=== PATIENT | male | born 1970 | race Caucasian/White ===

== ENCOUNTER 2017-09-12 08:19 | Observation (INO) | payer OTHER ==
[~2017-09-12] VITALS: Ht 182.9 cm; Wt 107.5 kg
[2017-09-12] VITALS (10 sets, daily range): BP systolic 137–146; BP diastolic 78–92; PULSE 66–86; RESP 13–18; TEMP 98–98.7; O2SAT 94–98
[~2017-09-12 08:19] MED LIST: BENZ1CAP51 PO; LIDOCAINE 1%/EPINEPHrine 1:100,000 SOLN 30 ML VIAL ONE; OXYMETAZOLINE HCL 0.05% 15 ML NASAL SPRAY ONE; VENL75TA PO
[2017-09-12] MEDS ORDERED: METOPROLOL TARTRATE 25 MG TAB PO PRN (08:45)
[2017-09-12] MEDS ORDERED: CHLORHEXIDINE GLUCONATE 2 % 1 PACK (2 CLOTHS) TOPICAL PRN (08:45)
[2017-09-12] MEDS ORDERED: POVIDONE IODINE 5% (ANTISEPSIS KIT) 4 APPLICATIONS EACH NARE PRN (08:45)
[2017-09-12] MEDS ORDERED: SODIUM CHLORID 0.9% 500 ML IV PRN (08:45)
[2017-09-12] MEDS ORDERED: INSULIN HUMAN REGULAR 1,000 UNITS/10 ML VIAL SQ PRN (08:45)
[2017-09-12] MEDS ORDERED: AMPICILLIN/SULBAC 3 GM/NS 100 ML IV SCH ×2 (09:00)
[2017-09-12] MEDS ORDERED: [UNRECOGNIZED DRUG - OTHER] PO (09:26)
[2017-09-12] MEDS ORDERED: FAMOTIDINE 20 MG/2 ML VIAL ONE (09:37)
[2017-09-12] MEDS ORDERED: MIDAZOLAM HCL 2 MG/2 ML VIAL ONE (09:37)
[2017-09-12] MEDS: LACTATED RINGER'S 1000 ML IV PRN ×2 (09:40→17:03)
[2017-09-12] MEDS ORDERED: fentaNYL CITRATE 250 MCG/5 ML AMP ONE (10:24)
[2017-09-12] MEDS ORDERED: MEPERIDINE HCL 25 MG/ML VIAL ONE (11:27)
[2017-09-12] MEDS ORDERED: MORPHINE SULFATE 8 MG/ML INJ ONE (11:38)
[2017-09-12] MEDS ORDERED: *HYDROmorphone PF 1 MG VIAL PERIprocedural Use ONLY ONE (12:05)
[2017-09-12] MEDS ORDERED: LABETALOL HCL 100 MG/20 ML VIAL ONE (12:18)
[2017-09-12] MEDS ORDERED: ACETAMINOPHEN/HYDROcodone 325 MG/5 MG TAB PO PRN (13:00)
[2017-09-12] MEDS: LACTATED RINGER'S 1000 ML INJ 1,000 ML IV SCH (13:31)
[2017-09-12] MEDS: AMPICILLIN/SULBAC 3 GM/NS 100 ML IV SCH ×4 (13:31→20:21)
[2017-09-12] MEDS ORDERED: HYDROmorphone HCL 2 MG TAB PO PRN (16:00)
[2017-09-12] MEDS: HYDROmorphone HCL PF 2 MG/ML VIAL IV PUSH SCH ×2 (16:14→20:20)
[2017-09-12] MEDS ORDERED: CHLORHEXIDINE GLUCONATE 2 % 1 PACK (2 CLOTHS)(extra cloths) TOPICAL PRN (18:00)
[2017-09-12] MEDS: ONDANSETRON HCL 4 MG/2 ML VIAL IV PUSH PRN (20:19)
[2017-09-13] VITALS (10 sets, daily range): BP systolic 129–152; BP diastolic 73–86; PULSE 70–94; RESP 9–14; TEMP 97.9–98.3; O2SAT 92–98
[2017-09-13] MEDS: HYDROmorphone HCL PF 2 MG/ML VIAL IV PUSH SCH ×3 (00:17→08:17)
[2017-09-13] MEDS: LACTATED RINGER'S 1000 ML INJ 1,000 ML IV SCH (03:45)
[2017-09-13] MEDS ORDERED: CHLORHEXIDINE GLUCONATE 2 % 1 PACK (2 CLOTHS)(taper/protocol) TOPICAL SCH (04:00)
[2017-09-13] MEDS: ONDANSETRON HCL 4 MG/2 ML VIAL IV PUSH PRN (04:09)
[2017-09-13] MEDS: AMPICILLIN/SULBAC 3 GM/NS 100 ML IV SCH ×2 (04:29)
[2017-09-13] MEDS ORDERED: ONDANSETRON HCL 4 MG/2 ML VIAL IV PUSH ONE (12:00)
[2017-09-13] MEDS ORDERED: DEXAMETHASONE SOD PHOS 4 MG/ML VIAL IV ONE (12:00)
[2017-09-13] MEDS ORDERED: LIDOCAINE HCL 1% PF 5 ML SYRINGE OTHER ONE (12:00)
[2017-09-13] MEDS ORDERED: PROPOFOL 200 MG/20 ML AMP IV ONE (12:00)
--- NOTE | 2017-09-24 15:17 | MP ---
cc: ROMAN ROTHMAN M.D. DATE OF SURGERY: 09/24/2017. PREOPERATIVE DIAGNOSIS: 1. Nasal airway obstruction. 2. Nasal septal deviation. 3. Hypertrophy of inferior turbinates. POSTOPERATIVE DIAGNOSIS: 1. Nasal airway obstruction. 2. Nasal septal deviation. 3. Hypertrophy of inferior turbinates. OPERATIVE PROCEDURE PERFORMED: 1. Open repair nasal septal fracture. 2. Bilateral submucosal resection of inferior turbinates. SURGEON: Roman Rothman MD. INDICATIONS FOR THE PROCEDURE: Documented in the history and physical. DESCRIPTION OF THE PROCEDURE IN DETAIL: The patient was taken to OR #2 and placed in the supine position. Following induction of general anesthesia and intubation, the nose was packed bilaterally with cotton pledgets saturated in 0.05% Oxymetazoline. The nasal septal mucosa and inferior turbinates were injected with a total of 80 mL of 1% Xylocaine with epinephrine 1:100,000 and he was then prepped and draped for surgery. Packing was removed and a hemitransfixion incision was made in the left nasal vestibule and through this incision the mucosa of septum was elevated bilaterally as far as the junction of the bony and cartilaginous septum. This revealed the quadrangular cartilage which showed evidence of old septal fracture with numerous comminuted fragments obstructing the nasal airway bilaterally predominately toward the left. A cumulative area of 2.0 x 2.5 cm of quadrangular cartilage was removed preserving 1.5 cm dorsal and caudal cartilaginous struts. The mucosa was elevated from the bony septum and the maxillary crest and these were removed using Vega-Fairbanks forceps. The incision was then closed using a running suture of 4-0 chromic and the mucosal layers of septum were approximated to each other with a quilting stitch of 4-0 plain gut. The inferior turbinates were then fractured out medially and stab incisions made along their inferior surfaces and through these incisions the submucosal soft tissue was reduced using a curette and preserving the conchal bone. The incision was then cauterized using the suction Bovie at 45 anderson and the remnants of the inferior turbinates were then re-lateralized to the lateral nasal wall. The nose was packed bilaterally with 7.5 cm rapid rhino packs each inflated with 7 mL of air and the procedure was terminated. The patient was then reversed from anesthesia and taken to recovery in good condition. There no complications. Blood loss was 200 mL. MD CASPER Vargas/SELMA /11:56 AM /3:08 PM
== END 2017-09-13 09:41 | disposition home or self-care (01) ==
LOC: PHSDC 08:19 → PH3A 13:06 → PHICU 16:58
PROVIDERS: ADMIT Otolaryngology; ATTEND Otolaryngology
DX: J34.89 Other specified disorders of nose and nasal sinuses (principal); J34.2 Deviated nasal septum; J32.9 Chronic sinusitis, unspecified; J34.3 Hypertrophy of nasal turbinates; G47.30 Sleep apnea, unspecified; Z98.1 Arthrodesis status
CPT/HCPCS: 00160; 30140; 30520; 94762; 96361; 96365; 96375; 96376; G0378; J0295; J1100; J1170; J2175; J2250; J2270; J2405; J3010; J7120